=== PATIENT | male | born 1975 | race Two or more races ===

== ENCOUNTER → 2016-09-18 | Outpatient (CLI) | payer OTHER ==
[2014-08-08 09:47] VITALS: BP 175/88
--- NOTE | 2016-09-18 10:51 | RAD ---
EXAM: Abdomen sonogram. HISTORY: Pain. TECHNIQUE: Sonographic imaging of the abdomen was performed. COMPARISON: None. FINDINGS: The liver is enlarged. There is hepatic steatosis. No focal hepatic lesion is seen. The gallbladder is unremarkable. The common bile duct, pancreas, aorta and inferior vena cava are obscured. The spleen is normal in size. There are multiple left inguinal lymph nodes the site of reported pain, the largest of which measures 2.5 x 1.5 x 0.4 cm and maintains a benign fatty hilum. IMPRESSION: 1. Hepatomegaly and hepatic steatosis. 2. Multiple prominent lymph nodes within the left inguinal region, possibly physiologic or reactive in etiology. 3. Obscured pancreas, common bile duct, aorta and inferior vena cava.
== END | disposition home or self-care (01) ==
LOC: US 09:24
PROVIDERS: ATTEND Family Medicine
DX: R10.30 Lower abdominal pain, unspecified (principal); R16.0 Hepatomegaly, not elsewhere classified; K76.0 Fatty (change of) liver, not elsewhere classified
CPT/HCPCS: 76700

== ENCOUNTER → 2016-09-24 | Outpatient (CLI) | payer OTHER ==
[2014-08-08 09:47] VITALS: BP 175/88
[~2016-09-24] MED LIST: CONTRAST GIVEN MC PRN; IOHEXOL 240 MG/ML 50ML VIAL. PO ONE; IOHEXOL 300 MG/ML 75 ML VIAL IV ONE
--- NOTE | 2016-09-24 09:46 | RAD ---
CT abdomen and pelvis with IV contrast History: Left groin pain. Comparison: CT abdomen pelvis 07/12/2013. Technique: After administration of oral and intravenous contrast, 75 mL Omnipaque 300, helical CT of the abdomen and pelvis was performed from the lung bases through the ischial tuberosities. Axial, sagittal, and coronal reconstructions were obtained. One or more of the following individualized dose reduction techniques were utilized for the study: Automated exposure control Adjustment of mA and/or kV according to patient's size Use of iterative reconstruction technique. Findings: Liver, spleen, pancreas, gallbladder, and bilateral adrenal glands are unremarkable. Bilateral kidneys enhance symmetrically. There is no evidence of bowel obstruction. No free air or free fluid is identified in the abdomen or pelvis. Appendix appears within normal limits. Urinary bladder is unremarkable. There may be a small bilateral inguinal hernias. No inguinal, abdominal, or pelvic lymphadenopathy is seen. Mild degeneration is seen in the spine. Impression: 1. No acute abnormality identified in the abdomen or pelvis. 2. There may be small bilateral fat-containing inguinal hernias.
== END | disposition home or self-care (01) ==
LOC: CT 06:42
PROVIDERS: ATTEND Surgery
DX: R10.30 Lower abdominal pain, unspecified (principal)
CPT/HCPCS: 74177; Q9966; Q9967